=== PATIENT | female | born 1980 | race Caucasian/White ===

== ENCOUNTER 2017-03-08 09:26 | Emergency (ER) | payer OTHER ==
--- NOTE | ~2017-03-08 | CR126 ---
[facility]. [facility] A Service of [facility] & [facility] RADIOLOGY TEXT RESULTS PATIENT: JEN MARTINEZ LOCATION: SED : 82 UNIT #: [id number] AGE: [address]: Dale Shen MD SEX: F ORDER DR: [id number] [address] [address] [id number] E MR#: [id number] Acc #: [id number] NAME: JEN MARTINEZ : 1980 SEX: F STUDY DATE/TIME: 03/08/2017 10:38 UNIT: SED ROOM: STUDY DESCRIPTION: CR Foot Complete Min 3 View Lt Attending Physician: Dale Shen M.D. Ordering Physician: Dale Shen M.D. [facility] This report is preliminary unless electronic signature is present. EXAM Left foot series, dated 03/08/2017. COMPARISON Left foot series, dated 09/17/2014. HISTORY Left foot pain post injury 2 months ago. Broken ankle 3 years ago. FINDINGS Three views of the left foot were obtained. There is a small plantar and posterior calcaneal spur. A spur is also noted along the superior aspect of the talus. There are linear lucencies noted in the proximal and mid aspect of the distal phalanx of the great toe only in the lateral view. It is unclear if it is related to a nondisplaced comminuted fracture as it is not well seen in the other 2 views. It could be overlying shadows relating to soft tissues. Correlate clinically. There is no radiopaque foreign body noted within the adjacent soft tissues. No dislocation is seen. Dictated by... Ninoska Barkley M.D. THIS IS AN ELECTRONICALLY VERIFIED REPORT Ninoska Barkley M.D. at 03/10/2017 9:14 PM CPR/jt TD: 03/08/2017 21:21 JOB #: [id number] [facility] of [facility] RADIOLOGY TEXT RESULTS PATIENT: JEN MARTINEZ LOCATION: [facility] [place] : [birth year] UNIT #: [id number] AGE: [address]: Dale Shen MD SEX: F ORDER DR: Page 1 of 1
[~2017-03-08 09:26] MED LIST: ACETAMINOPHEN; DEPO-PROVE150 MG/1 M IM; LORTAB 5-325 M1 EACH PO; MOTRIN400 M1; MULTI VITAMIN1 EACH; NAPROSYN500 MG PO; ROBAXIN 750750 M1 PO; VITAMIN B12-FO1 EACH PO; ZOFRAN ODT4 MG/UDTAB SL
[2017-03-08] MEDS ORDERED: NO MEDICATIONS (09:32)
== END 2017-03-08 12:05 | disposition home or self-care (01) ==
LOC: SED 09:26
DX: M79.672 Pain in left foot (principal); I10 Essential (primary) hypertension; Z88.2 Allergy status to sulfonamides; Z88.5 Allergy status to narcotic agent
CPT/HCPCS: 73630; 99283